=== PATIENT | male | born 1930 | race Caucasian/White ===

== ENCOUNTER 2016-09-11 05:47 | Day surgery (SDC) | payer MEDICARE, OTHER ==
[2016-09-11] MEDS ORDERED: LACTATED RINGERS 1,000 ML ONE (05:53)
[2016-09-11] MEDS ORDERED: ceFAZolin SODIUM 1 GM VIAL ONE (05:53)
[2016-09-11] MEDS ORDERED: SODIUM CHL 0.9% 100ML MINI-BAG 100 ML IVPB ONE (05:53)
[2016-09-11] MEDS ORDERED: BUPIVACAINE 0.25% INJ 30 ML VIAL INJ ONE (06:42)
[2016-09-11] MEDS ORDERED: LIDOCAINE 1% 50 ML VIAL INJ ONE (06:42)
[2016-09-11 07:07] VITALS: O2SAT 98
[2016-09-11] MEDS: ceFAZolin SODIUM 1 GM VIAL ONE ×2 (08:31→08:37)
[2016-09-11] MEDS: VANCOMYCIN HCL INJ 1,000 MG VIAL IVPB ONE ×2 (08:31→08:37)
[2016-09-11 09:32] VITALS: BP 160/57; TEMP 97.1
[2016-09-11] MEDS ORDERED: PROPOFOL 200 MG/20 ML VIAL IV ONE (12:00)
--- NOTE | 2016-09-12 08:10 | OP ---
DATE OF PROCEDURE: 09/11/16 PREOPERATIVE DIAGNOSIS: 1. Carpal tunnel syndrome. POSTOPERATIVE DIAGNOSIS: 1. Carpal tunnel syndrome. PROCEDURE: 1. Carpal tunnel release. SURGEON: Julio César Barber MD. SCOURING TRAIN OPERATOR: Donte Jj CST, SA-C. ANESTHESIA: Local with sedation. COMPLICATIONS: None. FINDINGS: Thickening of the transverse carpal ligament with narrowing of the median nerve across the carpal tunnel. There was obvious thenar atrophy. INDICATION: The patient has a history of symptoms consistent with carpal tunnel syndrome. He has failed conservative measures. After discussing the risks, benefits and alternatives to that, the patient has given informed consent for carpal tunnel release. PROCEDURE: The patient was brought to the Operating Room and placed in the supine position. Sedation was administered and local anesthetic was injected into the operative area under sterile conditions. After the injection of anesthetic, the arm was sterilely prepped and draped. A longitudinal incision was made directly overlying the transverse carpal ligament and blunt dissection was carried down to the ligament. The transverse carpal ligament was sharply transected along its length and a [place] elevator was used to ensure complete release of the ligament. Once release had been confirmed, the wound was thoroughly irrigated and the wound was closed with Nylon suture. A sterile dressing was placed and the patient was taken to the Day Surgery Unit. POSTOPERATIVE INSTRUCTIONS: The patient has been instructed to do range of motion of the digits and will followup with us in two days. #[id number] [facility]
== END 2016-09-11 09:30 | disposition home or self-care (01) ==
LOC: AMB 05:47
PROVIDERS: ATTEND Orthopaedic Surgery
DX: G56.02 Carpal tunnel syndrome, left upper limb (principal); E13.9 Other specified diabetes mellitus without complications
CPT/HCPCS: 01810; 64721; 82948; 87070; J0690; J3370; J3490; J7050; J7120

== ENCOUNTER 2016-12-14 05:41 | Day surgery (SDC) | payer MEDICARE, OTHER ==
[2016-12-14] MEDS ORDERED: SODIUM CHL 0.9% 100ML MINI-BAG 100 ML IVPB ONE (05:49)
[2016-12-14] MEDS ORDERED: LACTATED RINGERS 1,000 ML ONE (05:49)
[2016-12-14] MEDS ORDERED: ceFAZolin SODIUM 1 GM VIAL ONE ×2 (05:50→11:37)
[2016-12-14] MEDS ORDERED: PROPOFOL 200 MG/20 ML VIAL IV ONE (07:00)
[2016-12-14] MEDS ORDERED: BUPIVACAINE 0.25% INJ 30 ML VIAL INJ ONE (11:37)
[2016-12-14] MEDS ORDERED: VANCOMYCIN HCL INJ 1,000 MG VIAL IVPB ONE (11:37)
[2016-12-14] MEDS ORDERED: LIDOCAINE 1% 50 ML VIAL INJ ONE (11:37)
[2016-12-14 13:49] VITALS: O2SAT 100
[2016-12-14 13:53] VITALS: BP 151/80; TEMP 97.1
--- NOTE | 2016-12-15 18:55 | OP ---
DATE OF PROCEDURE: 12/14/16 PREOPERATIVE DIAGNOSIS: 1. Fifth digit triggering. POSTOPERATIVE DIAGNOSIS: 1. Fifth digit triggering. PROCEDURE: 1. Trigger finger release. SURGEON: Julio César Barber M.D. MANAGER OF INTERNAL: Donte Jj CST, SHERRIE. ANESTHESIA: Local with sedation. COMPLICATIONS: None. FINDINGS: Triggering at the A-1 alvaro of the fifth digit. INDICATION FOR PROCEDURE: Mr. Shirley has a long history of both pain and triggering at the A-1 alvaro. Mr. Shirley has had pain going on there long enough that it has caused him to have dysfunction in daily living. As such, he has requested operative intervention and after discussing the risks, benefits, and alternatives to that, he has given informed consent for that. DESCRIPTION OF PROCEDURE: The patient was brought to the Operating Room and placed in the supine position. Sedation was administered and local anesthetic was injected into the operative area. Following infection, the arm was sterilely prepped and draped. A transverse incision was made directly overlying the A1 alvaro of the triggering digit and blunt dissection was carried down to the alvaro while protecting the digital nerves. After identification of the alvaro, the alvaro was transected and a [place] elevator was passed both proximally and distally to ensure complete release. The finger was flexed and extended and there was no evidence of locking or clicking. The wound was thoroughly irrigated and closed with Nylon suture. A sterile dressing was placed and the patient was taken to the Day Surgery Unit. POSTOPERATIVE: He has been encouraged to do range of motion of the digits and the followup in 3 days. #[id number] [facility]
== END 2016-12-14 13:30 | disposition home or self-care (01) ==
LOC: AMB 05:41
PROVIDERS: ATTEND Orthopaedic Surgery
DX: M65.352 Trigger finger, left little finger (principal); E11.9 Type 2 diabetes mellitus without complications; K21.9 Gastro-esophageal reflux disease without esophagitis; Z87.891 Personal history of nicotine dependence; J44.9 Chronic obstructive pulmonary disease, unspecified; G47.30 Sleep apnea, unspecified; Z79.82 Long term (current) use of aspirin; Z79.84 Long term (current) use of oral hypoglycemic drugs; Z79.899 Other long term (current) drug therapy; Z96.651 Presence of right artificial knee joint
CPT/HCPCS: 01810; 26055; 36416; 82948; 87070; J0690; J3370; J3490; J7050; J7120

== ENCOUNTER → 2016-12-21 | Outpatient (CLI) | payer MEDICARE, OTHER ==
--- NOTE | 2016-12-24 08:54 | RAD ---
EXAM DESCRIPTION: Knee,Left Complete CLINICAL HISTORY: 86 years, Male, PAIN IN LEFT KNEE COMPARISON: A first 2016 TECHNIQUE: There are views of the left knee FINDINGS: Moderate vascular calcification behind the knee and in the lower thigh is evident posteriorly with a small joint effusion and moderate degenerative spurring at the articular margins of the patella superiorly and inferiorly. 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 No fracture or dislocation is seen. A large area of osteonecrosis is not apparent. Very little change is noted from June 27, 2015. IMPRESSION: 1. Small joint effusion with mild degenerative changes medial joint compartment and patellofemoral articulation. Electronically signed by: Kp Aquino MD 12/24/2016 8:53 AM CDT
--- NOTE | 2016-12-24 08:57 | RAD ---
EXAM DESCRIPTION: Pelvis CLINICAL HISTORY: 86 years Male, PAIN IN LEFT HIP COMPARISON: None. FINDINGS: A single view of the pelvis demonstrates evidence of prior prostatic seeding for prostate carcinoma with no evidence of bony metastatic disease. Each hip is mildly degenerative and there is moderate degenerative arthropathy involving the spine. No soft tissue masses or destructive process is seen. No fracture or hip dislocation noted. IMPRESSION: Unremarkable pelvis one view. Electronically signed by: Kp Aquino MD 12/24/2016 8:56 AM CDT
== END ==
LOC: RAD 07:35
PROVIDERS: ATTEND Orthopaedic Surgery
DX: M25.562 Pain in left knee (principal); M25.552 Pain in left hip; M25.462 Effusion, left knee